=== PATIENT | male | born 1980 | race Two or more races ===

== ENCOUNTER 2019-12-18 09:30 | Inpatient (IN) | payer OTHER ==
[~2019-12-18] VITALS: Ht 185.4 cm; Wt 115.7 kg
[2019-12-18] MEDS ORDERED: SYNTHROID50 MCG PO (11:52)
[2019-12-18] MEDS ORDERED: ALLOPURINOL300 MG PO (11:53)
[2019-12-18] MEDS ORDERED: ZESTORETIC 20-1 EAC1 PO (11:53)
[2019-12-28] MEDS ORDERED: OXYC1TAB9 PO (10:39)
[2019-12-28] MEDS ORDERED: HYOSCYAMINE0.125 M1 SL (10:39)
[2019-12-28] MEDS ORDERED: INTESTINEX680 M1 PO (10:40)
== END 2019-12-28 12:33 | disposition home or self-care (01) | DRG 331 ==
LOC: SURH 12-25 07:00 → O/R 12-25 11:13 → SURH 12-25 11:13
PROVIDERS: ADMIT Surgery; ATTEND Surgery
PROC: 0DTP4ZZ Resection of Rectum, Percutaneous Endoscopic Approach (ICD-10-PCS; 2019-12-25)
PROC: 0DTN4ZZ Resection of Sigmoid Colon, Percutaneous Endoscopic Approach (ICD-10-PCS; principal; 2019-12-25 07:00)
DX: K57.32 Diverticulitis of large intestine without perforation or abscess without bleeding (principal); R19.4 Change in bowel habit; I11.9 Hypertensive heart disease without heart failure; E03.8 Other specified hypothyroidism; M10.9 Gout, unspecified; M54.10 Radiculopathy, site unspecified; E66.01 Morbid (severe) obesity due to excess calories; K76.0 Fatty (change of) liver, not elsewhere classified; G47.33 Obstructive sleep apnea (adult) (pediatric); R73.01 Impaired fasting glucose

== ENCOUNTER 2020-01-06 08:49 | Inpatient (IN) | payer OTHER ==
[~2020-01-06] VITALS: Ht 185.4 cm; Wt 151.5 kg
[~2020-01-06 08:49] MED LIST: ALLOPURINOL300 MG PO; HYOSCYAMINE0.125 M1 SL; INTESTINEX680 M1 PO; OXYC1TAB9 PO; SYNTHROID50 MCG PO; ZESTORETIC 20-1 EAC1 PO
== END 2020-01-12 21:48 | disposition home or self-care (01) | DRG 863 ==
LOC: ER 08:49 → SEC-K 10:16 → SURG 10:16
PROVIDERS: ADMIT Surgery; ATTEND Surgery
PROC: BW21ZZZ Computerized Tomography (CT Scan) of Abdomen and Pelvis (ICD-10-PCS; principal; 2020-01-06)
PROC: B54BZZZ Ultrasonography of Right Lower Extremity Veins (ICD-10-PCS; 2020-01-06)
PROC: 02HV33Z Insertion of Infusion Device into Superior Vena Cava, Percutaneous Approach (ICD-10-PCS; 2020-01-09)
DX: T81.49XA Infection following a procedure, other surgical site, initial encounter (principal); K57.32 Diverticulitis of large intestine without perforation or abscess without bleeding; B96.29 Other Escherichia coli [E. coli] as the cause of diseases classified elsewhere; B95.2 Enterococcus as the cause of diseases classified elsewhere; Z20.828 Contact with and (suspected) exposure to other viral communicable diseases; E66.01 Morbid (severe) obesity due to excess calories; G47.33 Obstructive sleep apnea (adult) (pediatric); M79.18 Myalgia, other site

== ENCOUNTER 2020-04-18 21:17 | Emergency (ER) | payer OTHER ==
[~2020-04-18] VITALS: Ht 185.4 cm; Wt 154.7 kg
[2020-04-19] MEDS ORDERED: CIPRO500 MG PO (07:57)
[2020-04-19] MEDS ORDERED: LEVSIN/SL0.125 MG SL (07:57)
[2020-04-19] MEDS ORDERED: FLAGYL500MG PO (07:57)
== END 2020-04-19 08:06 | disposition home or self-care (01) ==
LOC: ER 21:17
DX: R10.32 Left lower quadrant pain (principal); Z03.818 Encounter for observation for suspected exposure to other biological agents ruled out

== ENCOUNTER 2020-12-14 11:53 | Day surgery (SDC) | payer OTHER ==
[~2020-12-14 11:53] MED LIST changes: +CIPRO500 MG PO; +FLAGYL500MG PO; +LEVSIN/SL0.125 MG SL
== END 2020-12-14 17:30 | disposition home or self-care (01) ==
LOC: AMB-ENDOS 11:53
PROVIDERS: ATTEND Surgery
DX: K57.32 Diverticulitis of large intestine without perforation or abscess without bleeding (principal); K64.8 Other hemorrhoids